=== PATIENT | female | born 1995 | race American Indian/Alaskan Native ===

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

== ENCOUNTER 2020-06-19 22:34 | Outpatient (CLI) | payer OTHER ==
[2020-06-19 23:01] VITALS: BP 117/74
== END 2020-06-19 23:30 | disposition home or self-care (01) ==
LOC: TRG 22:34 → APU 22:35 → TRG 23:30
PROVIDERS: ATTEND Obstetrics & Gynecology
DX: O47.02 False labor before 37 completed weeks of gestation, second trimester (principal); Z3A.25 25 weeks gestation of pregnancy
CPT/HCPCS: 59025

== ENCOUNTER 2020-07-06 10:29 | Emergency (ER) | payer OTHER ==
[2020-07-06 10:39] VITALS: BP 121/72
--- NOTE | 2020-07-06 10:49 | Event Note ---
ED Screening Note ED Screening Note: left labia abscess that began 2-3 days ago had one a year ago and had I&D last year no fever, abd pain, vaginal bleeding 27 weeks , [employer]IE[employer]ER Dr. Green PMHx none no allergies to meds This initial assessment/diagnostic orders/clinical plan/treatment(s) is/are subject to change based on patients health status, clinical progression and re- assessment by fellow clinical providers in the ED. Further treatment and workup at subsequent clinical providers discretion. Patient/guardian urged not to elope from the ED as their condition may be serious if not clinically assessed and managed. Initial orders include: ACC eval
[2020-07-06] MEDS ORDERED: LIDOCAINE (2%) 20 MG/1 ML VIAL 20 ML MDV INFILTRATI ONE (12:34)
--- NOTE | 2020-07-06 12:59 | Emergency Department Report ---
Abscess Boil HPI - HPI Chief Complaint: Skin/Abscess/Foreign Body Stated Complaint: CYST ON GENTIALS Time Seen by Provider: 07/06/20 10:48 Duration: 2 Days Location: Other (left labia majora) Severity: Mild History: Yes Pain, Yes Purulent Drainage, No Fever, No Numbness, No Foreign Body, No Previous History, No Insect Bite HPI: This is a 25-year-old female nontoxic, well nourished in appearance, no acute signs of distress presents to the ED with c/o of left labia majora with drainge. Patient denies any fever, chills, nausea, vomiting, chest pain, shortness of breath, headache or stiff neck. Patient denies any allergies or significant past medical history. Patient stated she is but denies any symptoms or complication of vaginal bleeding or pelvic pain abdominal pain. Home Medications: Previous Rx's Medication Instructions Recorded Last Taken Type Ibuprofen [Motrin 600 MG tab] 600 mg PO Q8H PRN #30 tablet 02/12/16 11/04/16 Rx Butalb/Acetamin/Caff 50-325-40 1 each PO Q4H PRN #30 tablet 11/04/16 Unknown Rx [Fioricet] Acetaminophen [Tylenol] 650 mg PO Q8HR PRN #20 capsule 03/05/20 Unknown Rx Metoclopramide [Reglan] 10 mg PO Q8HR PRN #12 tab 03/05/20 Unknown Rx cephALEXin [Keflex] 500 mg PO BID 7 Days #14 cap 03/05/20 Unknown Rx Clindamycin [Clindamycin CAP] 300 mg PO Q8H #21 cap 07/06/20 Unknown Rx Allergies/Adverse Reactions: Allergies Allergy/AdvReac Type Severity Reaction Status Date / Time No Known Allergies Allergy Verified 10/12/15 01:38 ED Review of Systems ROS: Stated complaint: CYST ON GENTIALS Other details as noted in HPI Constitutional: denies: chills, fever Eyes: denies: eye pain, eye discharge, vision change ENT: denies: ear pain, throat pain Respiratory: denies: cough, shortness of breath, wheezing Cardiovascular: denies: chest pain, palpitations Endocrine: no symptoms reported Gastrointestinal: denies: abdominal pain, nausea, diarrhea Genitourinary: denies: urgency, dysuria, discharge Musculoskeletal: denies: back pain, joint swelling, arthralgia Skin: denies: rash, lesions Neurological: denies: headache, weakness, paresthesias Psychiatric: denies: anxiety, depression Hematological/Lymphatic: denies: easy bleeding, easy bruising ED Past Medical Hx - Past Medical History Previous Medical History?: No - Surgical History Past Surgical History?: No - Social History Smoking Status: Former Smoker - Medications Home Medications: Home Medications Medication Instructions Recorded Confirmed Last Taken Type Ibuprofen [Motrin 600 MG tab] 600 mg PO Q8H PRN #30 tablet 02/12/16 11/04/16 11/04/16 Rx Butalb/Acetamin/Caff 50-325-40 1 each PO Q4H PRN #30 tablet 11/04/16 Unknown Rx [Fioricet] Acetaminophen [Tylenol] 650 mg PO Q8HR PRN #20 capsule 03/05/20 Unknown Rx Metoclopramide [Reglan] 10 mg PO Q8HR PRN #12 tab 03/05/20 Unknown Rx cephALEXin [Keflex] 500 mg PO BID 7 Days #14 cap 03/05/20 Unknown Rx Clindamycin [Clindamycin CAP] 300 mg PO Q8H #21 cap 07/06/20 Unknown Rx ED Abscess Boil Physical Exam - Exam General: Vital signs noted. No distress. Alert and acting appropriately. Exam: Yes Tenderness, Yes Normal Neurologic Exam, Yes Normal Circulation, No Fluctuance, No Surrounding Cellulites/Erythema, No Lymphangitis, No Crepitation, No Heart Murmur Exam: Purulent drainage noted to left labia majora. Hernandez Ventura RN present during exam. ED Course Vital Signs 07/06/20 10:38 Temperature 98.7 F Pulse Rate 102 H Respiratory 18 Rate Blood Pressure 121/72 O2 Sat by Pulse 97 Oximetry - Reevaluation(s) Reevaluation #1: 07/06/20 13:04 Patient is speaking in full sentences with no signs of distress noted. Critical care attestation.: If time is entered above; I have spent that time in minutes in the direct care of this critically ill patient, excluding procedure time. ED Medical Decision Making - Medical Decision Making This is a 25-year-old female that presents with left labia majora abscess. Patient is stable and was examined by me. Incision and drainage has not been performed due to abscess has drainage. Patient was instructed to refer to Follow-up with a primary care doctor in 3-5 days or if symptoms worsen and continue return to emergency room as soon as possible. At time of discharge, the patient does not seem toxic or ill in appearance. No acute signs of distress noted. Patient agrees to discharge treatment plan of care. No further questions noted by the patient. ED Disposition Clinical Impression: Abscess of labia majora Disposition: - TO HOME OR SELFCARE Is pt being admited?: No Does the pt Need Aspirin: No Condition: Stable Instructions: Skin Abscess Additional Instructions: Follow-up with a primary care doctor in 3-5 days or if symptoms worsen and continue return to emergency room as soon as possible. Prescriptions: Clindamycin [Clindamycin CAP] 300 mg PO Q8H #21 cap Referrals: CAYETANO LIM MD [Primary Care Provider] - 3-5 Days PRIMARY MD ANDRY [Referring] - 3-5 Days PETTY LANDA MD [Staff Physician] - 3-5 Days Forms: Work/School Release Form(ED)
== END 2020-07-06 13:17 | disposition home or self-care (01) ==
LOC: ED 10:29
DX: N76.4 Abscess of vulva (principal); Z87.891 Personal history of nicotine dependence; Z79.1 Long term (current) use of non-steroidal anti-inflammatories (NSAID); Z79.2 Long term (current) use of antibiotics; Z79.899 Other long term (current) drug therapy
CPT/HCPCS: 99282

== ENCOUNTER 2020-09-09 18:56 | Outpatient (CLI) | payer OTHER ==
[2020-09-09 20:00] VITALS: BP 119/76
[2020-09-09 20:22] LABS: Bacteria,Urine 1+ /HPF (Negative); Bilirubin,Urine NEG (Negative); Blood,Urine NEG (Negative); Color,Urine Yellow (Yellow); Protein,Urine <15 mg/dL mg/dL (Negative); Urobilinogen,Urine < 2.0 mg/dL (<2.0)
[2020-09-09] MEDS ORDERED: ACETAMINOPHEN W/CODEINE 300-30 MG TAB PO ONE (21:55)
== END 2020-09-09 21:14 | disposition home or self-care (01) ==
LOC: TRG 18:56
PROVIDERS: ATTEND Obstetrics & Gynecology
DX: O62.4 Hypertonic, incoordinate, and prolonged uterine contractions (principal); Z3A.37 37 weeks gestation of pregnancy
CPT/HCPCS: 59025; 81001; Q0177

== ENCOUNTER 2020-09-18 16:12 | Outpatient (CLI) | payer OTHER ==
[2020-09-18 16:57] VITALS: BP 120/77
== END 2020-09-18 20:18 | disposition home or self-care (01) ==
LOC: TRG 16:12 → APU 16:16 → TRG 20:18
PROVIDERS: ATTEND Obstetrics & Gynecology
DX: O47.1 False labor at or after 37 completed weeks of gestation (principal); Z3A.38 38 weeks gestation of pregnancy
CPT/HCPCS: 59025

== ENCOUNTER 2020-09-19 20:57 | Inpatient (IN) | payer OTHER ==
[2020-09-19] MEDS ORDERED: LACTATED RINGERS 1,000 ML ONE (21:14)
[2020-09-19] MEDS ORDERED: TERBUTALINE 1 MG/1 ML INJ SUB-Q PRN (21:19)
[2020-09-19] MEDS ORDERED: fentaNYL 100 MCG/2 ML INJ IV PRN (21:19)
[2020-09-19] MEDS ORDERED: ePHEDrine SULFATE 50 MG/1 ML INJ IV PRN (21:19)
[2020-09-19] MEDS ORDERED: LIDOCAINE (2%) 20 MG/1 ML VIAL 20 ML MDV INFILTRATI ONE (21:19)
--- NOTE | 2020-09-19 21:27 | History and Physical Report ---
History of Present Illness Date of examination: 09/19/20 Date of admission: 09/19/20 Chief complaint: Contractions History of present illness: 25 year old presents with contractions. Patient denies leaking of fluid. Patient reports active movement. Patient received care at [facility] [place] and records are available. EDC 09/30/20. significant for the following: anemia (supplemented with iron). Patient reports she saw [facility] also during the due to "placental lakes." labs are as follows: B+, antibody screen negative, rubella immune, hepatitis B surface antigen negative, HIV negative, RPR nonreactive, varicella immune, 1 hour sugar test 108, gonorrhea negative, chlamydia negative, GBS negative. 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 denies: smoking, alcohol abuse, prescription drug abuse, IV drug use - Obstetrical History Expected Date of Delivery: 09/30/20 Actual Gestation: 38 Week(s) 3 Day(s) : 1 Para: 0 Hx # Term Pregnancies: 0 Number of Pregnancies: 0 Spontaneous Abortions: 0 Induced : 0 Number of Living Children: 0 Medications and Allergies Allergies Allergy/AdvReac Type Severity Reaction Status Date / Time No Known Allergies Allergy Verified 10/12/15 01:38 Home Medications Medication Instructions Recorded Confirmed Last Taken Type Ferrous Sulfate 1 tab PO DAILY 09/19/20 09/19/20 09/17/20 History Active Meds: Active Medications Ephedrine Sulfate (Ephedrine Sulfate 50 Mg/1 Ml Inj) 10 mg IV Q2M PRN PRN Reason: Hypotension Fentanyl (Fentanyl 100 Mcg/2 Ml Inj) 100 mcg IV Q2H PRN PRN Reason: Pain,Severe (7-10) LABOR PAIN Lactated Ringer's (Lactated Ringers) 1,000 mls @ 125 mls/hr IV DIRECT CR Oxytocin/Sodium Chloride (Pitocin/Ns 30 Unit/500ml) 30 units in 500 mls @ 40 mls/hr IV TITR CR; Protocol Lidocaine (Lidocaine (2%) 20 Mg/1 Ml Vial 20 Ml Mdv) 20 ml INFILTRATI ONCE ONE Stop: 09/19/20 21:20 Terbutaline Sulfate (Terbutaline 1 Mg/1 Ml Inj) 0.25 mg SUB-Q ONCE PRN PRN Reason: Hyperstimulation/Hypertonicity Review of Systems All systems: negative (contractions) - Physical Exam Abdomen: Positive: normal appearance, soft. Negative: distention, tenderness, guarding, rigidity Genitourinary (Female): Positive: normal external genitalia, normal perenium. Negative: perineal/vulvar lesions (no lesions seen on careful exam with bright light) Vagina: Positive: normal moisture Uterus: Positive: enlarged. Negative: tender Anus/Rectum: Positive: normal perianal skin Extremities: Negative: tenderness, edema - Obstetrical FHR: category 1 Uterine Contraction Monitor Mode: External Cervical Dilatation: 4 Cervical Effacement Percentage: 100 station: -1 Uterine Contraction Pattern: Regular Uterine Contraction Intensity: Moderate Results Result Diagrams: 09/19/20 21:45 All other labs normal. Assessment and Plan A: at 38 weeks, 3 days gestation. Active labor. GBS negative. P: Admit. EFM. Anticipate vaginal .
[2020-09-19] MEDS ORDERED: OXYTOCIN DRIP 30 UNITS/500 ML BAG IV SCH (22:00)
[2020-09-19] MEDS: LACTATED RINGERS 1,000 ML IV SCH ×2 (22:00→23:56)
[2020-09-19 22:37] LABS: Hematocrit 34.9 % (30.3-42.9); Hemoglobin 11.6 gm/dl (10.1-14.3); Mean Corpuscular HGB Conc 33 % (30-34); Mean Corpuscular Volume 87 fl (79-97); Platelet Count 181 K/mm3 (140-440); Red Cell Distribution Width 13.4 % (13.2-15.2)
[2020-09-20] MEDS: LACTATED RINGERS 1,000 ML IV SCH (01:21)
[2020-09-20 01:38] LABS: Alanine Aminotransferase 5 units/L (7-56); Albumin 3.5 g/dL (3.9-5); Blood Urea Nitrogen 5 mg/dL (7-17); Calcium 8.7 mg/dL (8.4-10.2); Hemolysis Index 9
[2020-09-20 01:46] LABS: BUN/Creatinine Ratio 8
[2020-09-20] MEDS ORDERED: ePHEDrine SULFATE 50 MG/1 ML INJ IV PRN (02:18)
[2020-09-20] MEDS ORDERED: NALOXONE 2 MG/2 ML INJ IV PRN (02:18)
--- NOTE | 2020-09-20 02:20 | Anesthesia Consultation ---
Anesthesia Consult and Med Hx Date of service: 09/20/20 - Airway Anesthetic Teeth Evaluation: Good ROM Head & Neck: Adequate Mental/Hyoid Distance: Adequate Mallampati Class: Class II Intubation Access Assessment: Probably Good - Pulmonary Exam CTA: Yes - Cardiac Exam Cardiac Exam: RRR - Pre-Operative Health Status ASA Pre-Surgery Classification: ASA2 Proposed Anesthetic Plan: Epidural - Pulmonary Hx Smoking: No Hx Asthma: No Hx Respiratory Symptoms: No SOB: No COPD: No Home Oxygen Therapy: No Hx Pneumonia: No Hx Sleep Apnea: No - Cardiovascular System Hx Hypertension: No Hx Coronary Artery Disease: No Hx Heart Attack/AMI: No Hx Angina: No Hx Percutaneous Transluminal Coronary Angioplasty (PTCA): No Hx Cardia Arrhythmia: No Hx Pacemaker: No Hx Internal Defibrillator: No Hx Valvular Heart Disease: No Hx Heart Murmur: No Hx Peripheral Vascular Disease: No - Central Nervous System Hx Neuromuscular Disorder: No Hx Seizures: No CVA: No Hx Back Pain: No Hx Psychiatric Problems: No - Gastrointestinal Hx Ulcer: No Hx Gastroesophageal Reflux Disease: No - Endocrine Hx Renal Disease: No Hx End Stage Renal Disease: No Hx Cirrhosis: No Hx Liver Disease: No Hx Insulin Dependent Diabetes: No Hx Non-Insulin Dependent Diabetes: No Hx Thyroid Disease: No Hx Hypothyroidism: No Hx Hyperthyroidism: No - Hematic Hx Anemia: Yes Hx Sickle Cell Disease: No - Other Systems Hx Alcohol Use: No Hx Substance Use: No Hx Cancer: No
--- NOTE | 2020-09-20 02:21 | Progress Note ---
Labor Epidural - Labor Epidural Start Time: 02:30 Stop Time: 03:00 Performed by:: STEVE FLORIAN Procedure: Patient is requesting a laboring epidural for laboring pain. Patient IDed, H&P reviewed, all questions and concerns were answered, and consent was signed. Timeout was performed at bedside. Patient in sitting position. Sterile prep and drape was performed. [3] ml of 1% lidocaine skin wheal at L[3]- L [4]. 18- gauge Touhy epidural needle was advanced to loss of resistance with saline technique 5cm. Negative CSF negative blood. Epidural catheter advanced to [11] centimeters. [NEGATIVE] Aspiration [NEGATIVE] test dose. Sterile dressing applied. Patient tolerated procedure. preformed Velia Piedra, SRNA
[2020-09-20] MEDS ORDERED: fentaNYL-BUPIV 2 MCG/ML-0.125% 200 MCG/100 ML BAG EPIDURAL SCH (03:00)
[2020-09-20] MEDS ORDERED: ONDANSETRON 4 MG/2 ML INJ ONE (08:18)
[2020-09-20] MEDS ORDERED: ONDANSETRON 4 MG/2 ML INJ IV SCH (08:20)
[2020-09-20 09:39] LABS: Amphetamine Screen,Urine Negative; Benzodiazepines Screen,Urine Negative; Cannabinoid Screen,Urine Negative; Cocaine Screen,Urine Negative; Methadone Screen,Urine Negative; Opiate Screen,Urine Negative
[2020-09-20 10:41] LABS: Bilirubin,Urine NEG (Negative); Blood,Urine MOD (Negative); Color,Urine Straw (Yellow); Protein,Urine <15 mg/dL mg/dL (Negative); Urobilinogen,Urine < 2.0 mg/dL (<2.0)
[2020-09-20] MEDS ORDERED: MAGNESIUM HYDROXIDE (MOM) ORAL LIQD UDC PO PRN (11:00)
[2020-09-20] MEDS ORDERED: LANOLIN/ZINC/DIMETHICONE (LANSINOH) 7 GM TP PRN (11:00)
[2020-09-20] MEDS ORDERED: HYDROcodone/ACETAMINOPHEN 5-325 MG TAB PO PRN (11:00)
[2020-09-20] MEDS ORDERED: WITCH HAZEL/ GLYCERIN PAD TP PRN (11:00)
--- NOTE | 2020-09-20 11:00 | Procedure Note ---
OB Delivery Note - Delivery Date of Delivery: 09/20/20 Surgeon: BRAD LOVETT Estimated blood loss: 200cc - Vaginal Delivery presentation: vertex Intrapartum events: none Delivery induction: none Delivery augmentation: rupture of membranes Delivery monitor: external FHT, external uterine Route of delivery: Delivery placenta: spontaneous Delivery cord: 3 umbilical vessels Episiotomy: none Delivery laceration: none Anesthesia: epidural Delivery comments: Spontaneous vaginal delivery at 10:35 of liveborn female weighing 2.899 kg over intact perineum with apgars of 8/9. Epidural anesthesia. was atraumatic; no nuchal cord. Baby placed skin to skin with mom immediately after ; spontaneous cry and respirations. Baby suctioned with bulb syringe and dried with warm towels. 3 vessel cord double clamped and cut. Spontaneous delivery of intact placenta and membranes at 10:40. EBL 200 cc. Pitocin to IV fluids right after delivery. Fundus firm and midline. No lacerations noted. Vaginal sweep negative. Sponge count correct. Mom and baby stable in birthing room.
--- NOTE | 2020-09-20 11:25 | Post Anesthesia Evaluation ---
- Post Anesthesia Evaluation Patient Participated: Yes Airway Patent: Yes Stable Respiratory Function: Yes Nausea/Vomiting: No Temp > 96.8F: Yes Pain Manageable: Yes Adequeate Hydration: Yes Anesthesia Complications: No Block Receding Appropriately: Yes Patient on Ventilator: No
[2020-09-20] MEDS: IBUPROFEN 600 MG TAB PO SCH ×3 (16:38→22:40)
[2020-09-21 00:58] LABS: Hematocrit 31.8 % (30.3-42.9); Hemoglobin 10.6 gm/dl (10.1-14.3)
[2020-09-21] MEDS: PRENATAL VIT27-FE FUMARATE-FOLIC ACID VIT TAB PO SCH (10:31)
[2020-09-21] MEDS: FERROUS SULFATE 325 MG TAB PO SCH ×2 (10:31→21:37)
[2020-09-21] MEDS: IBUPROFEN 600 MG TAB PO SCH ×3 (12:07→21:36)
--- NOTE | 2020-09-21 12:11 | Progress Note ---
Assessment and Plan A: day 1 S/P . Anemia. P: Oral iron supplementation. Anticipate discharge home tomorrow if patient continues to do well. Subjective - Subjective Date of service: 09/21/20 Principal diagnosis: day 1 S/P Patient reports: appetite normal, voiding normally, pain well controlled, flatus, ambulating normally, no dizzy ambulation, no nauseated : doing well Objective - Vital Signs Latest vital signs: Vital Signs Temp Pulse Resp BP BP Pulse Ox 09/21/20 07:45 97.9 F 90 16 108/70 97 09/21/20 00:26 97.0 F L 67 18 125/87 98 09/20/20 22:40 14 09/20/20 20:46 98.1 F 75 18 118/76 09/20/20 16:24 98.3 F 90 18 128/88 95 09/20/20 12:25 98.0 F 67 18 124/68 99 Intake and Output 09/20/20 09/21/20 09/21/20 23:59 07:59 15:59 Intake Total 300 120 Output Total 500 Balance -500 300 120 Intake: Oral 120 Intake, Free Water 300 Output: Urine 500 Void 500 Other: Total, Intake Amount 120 Total, Output Amount 500 # Voids Void 1 1 1 - Exam Abdomen: Present: normal appearance, soft. Absent: distention, tenderness, guarding, rigidity Uterus: Present: normal, firm, fundal height below umbilicus. Absent: bogginess, tenderness Extremities: Present: normal. Absent: tenderness, edema
[2020-09-22] MEDS: IBUPROFEN 600 MG TAB PO SCH (05:18)
--- NOTE | 2020-09-22 07:01 | Progress Note ---
Assessment and Plan A: day 2 S/P . Anemia. P: Discharge patient home today. Discussed with patient discharge instructions and warning signs. Advised patient to avoid intercourse, lifting, heavy housework. Advised patient to continue taking her vitamins and iron supplements at home. Advised patient to follow up at [facility] office in 6 weeks. Patient voiced understanding of all instructions. Subjective - Subjective Date of service: 09/22/20 Principal diagnosis: day 2 S/P Interval history: Patient requests discharge home today. Patient reports: appetite normal, voiding normally, pain well controlled, flatus, ambulating normally, no dizzy ambulation, no nauseated [place]: doing well Objective - Vital Signs Latest vital signs: Vital Signs Temp Pulse Resp BP Pulse Ox 09/21/20 23:29 98.2 F 83 20 113/69 96 09/21/20 16:11 97.9 F 62 16 139/88 98 09/21/20 07:45 97.9 F 90 16 108/70 97 Intake and Output 09/21/20 09/21/20 09/22/20 15:59 23:59 07:59 Intake Total 360 240 240 Balance 360 240 240 Intake: Oral 360 240 240 Other: Total, Intake Amount 240 240 240 # Voids Void 1 1 1 - Exam Cardiovascular: Present: Regular rate Lungs: Present: Clear to auscultation Abdomen: Present: normal appearance, soft, normal bowel sounds. Absent: distention, tenderness, guarding, rigidity Uterus: Present: normal, firm, fundal height below umbilicus. Absent: bogginess, tenderness Extremities: Present: normal. Absent: tenderness, edema
--- NOTE | 2020-09-22 07:04 | Discharge Summary ---
Providers - Providers Date of Admission: 09/19/20 21:19 Date of discharge: 09/22/20 Attending physician: RADHA LUIS Primary care physician: RADHA LUIS Hospitalization Reason for admission: active labor Delivery: Episiotomy: none Laceration: none Other procedures: none complications: none Discharge diagnosis: IUP at term delivered baby: female Pertinent studies: Labs Hospital course: Normal hospital course Condition at discharge: Good Disposition: DC-01 TO HOME OR SELFCARE - Discharge Diagnoses (1) Term delivered Status: Acute (2) Anemia Status: Acute Plan - Provider Discharge Summary Activity: routine, no sex for 6 weeks, no heavy lifting 4 weeks, no strenuous exercise Diet: routine Instructions: routine Additional instructions: Continue taking your vitamins and iron supplements at home. Call your doctor immediately for: * Fever > 100.5 * Heavy vaginal bleeding ( >1 pad per hour) * Severe persistent headache * Shortness of breath * Reddened, hot, painful area to leg or breast - Follow up plan Follow up: PRIMARY CARE, [Referring] - 6 Weeks
[2020-09-22] MEDS: FERROUS SULFATE 325 MG TAB PO SCH (09:50)
[2020-09-22] MEDS: PRENATAL VIT27-FE FUMARATE-FOLIC ACID VIT TAB PO SCH (09:50)
[2020-09-22 12:11] VITALS: BP 123/91
== END 2020-09-22 11:30 | disposition home or self-care (01) | DRG 775 ==
LOC: TRG 20:57 → LD 21:19 → OB 09-20 12:20
PROVIDERS: ADMIT Obstetrics & Gynecology; ATTEND Obstetrics & Gynecology
PROC: 10E0XZZ Delivery of Products of Conception, External Approach (ICD-10-PCS; principal; 2020-09-20)
PROC: 3E0R3BZ Introduction of Anesthetic Agent into Spinal Canal, Percutaneous Approach (ICD-10-PCS; 2020-09-20)
PROC: 00HU33Z Insertion of Infusion Device into Spinal Canal, Percutaneous Approach (ICD-10-PCS; 2020-09-20)
DX: O99.02 Anemia complicating childbirth (principal); Z3A.38 38 weeks gestation of pregnancy; Z37.0 Single live birth; Z20.822 Contact with and (suspected) exposure to COVID-19
CPT/HCPCS: 36415; 59025; 80053; 80307; 81001; 83615; 84550; 85014; 85018; 85027; 86592; 86706; 86850; 86900; 86901; 87086; 96360; 96361; 96365; 96366; 96367; G0378; A6250; J2405; J7120; U0003